=== PATIENT | male | born 1975 | race Caucasian/White ===

== ENCOUNTER 2021-04-20 20:02 | Emergency (ER) | payer MEDICAID ==
[~2021-04-20] VITALS: Ht 182.9 cm; Wt 70.3 kg
[2021-04-20 20:04] VITALS: BP 157/97
[2021-04-21] MEDS ORDERED: ALBU0.0912 IH (02:11)
[2021-04-21 06:24] VITALS: BP 157/97
--- NOTE | 2021-04-21 06:25 | NUR ---
Patient discharged with v/s stable. Written and verbal after care instructions given and explained. Patient verbalized understanding. Ambulatory with steady gait. All questions addressed prior to discharge. Advised to follow up with PMD.
== END 2021-04-21 06:00 | disposition home or self-care (01) ==
LOC: MED 20:02
DX: R53.1 Weakness (principal); Z20.822 Contact with and (suspected) exposure to COVID-19; M79.10 Myalgia, unspecified site; R06.02 Shortness of breath; J45.909 Unspecified asthma, uncomplicated; F17.210 Nicotine dependence, cigarettes, uncomplicated; F11.90 Opioid use, unspecified, uncomplicated; F12.90 Cannabis use, unspecified, uncomplicated; F14.90 Cocaine use, unspecified, uncomplicated; F15.90 Other stimulant use, unspecified, uncomplicated; Z79.899 Other long term (current) drug therapy; Z71.6 Tobacco abuse counseling; Z88.8 Allergy status to other drugs, medicaments and biological substances; Z98.890 Other specified postprocedural states
CPT/HCPCS: 71045; 99284